=== PATIENT | female | born 1960 | race Caucasian/White ===

== ENCOUNTER 2016-12-16 08:25 | Outpatient (CLI) | payer OTHER ==
--- NOTE | 2016-12-16 16:16 | PET ---
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 Restaging. COMPARISON: 07/05/16. TECHNIQUE: IV injection F-18 Fluorodeoxyglucose (FDG) dose: 12.5 mCi PET and attenuation-correction CT performed from skull base to proximal thighs. FINDINGS: SUV (standard uptake value) numbers given are maximum SUV's: The previously demonstrated focus of hypermetabolic activity in the right anterior mandible, consist ent with odontogenic disease, has resolved. Diffusely enlarged thyroid gland is nonhypermetabolic, similar to previous study. Again noted is the right-sided implantable vascular access port. No abnormal foci of hypermetabolic activity in the ne ck, chest, abdomen, or pelvis, with the exception of the perianal region, similar to the previous st udy (current SUV 4.8; prior SUV 8.4). Previously demonstrated hypermetabolic activity in the sigmoid colon is no longer visualized. IMPRESSION: 1. Nonspecific focus of hypermetabolic activity in the region of the anus, as was the case previous ly. Nonspecific. Recommend clinical correlation. 2. Otherwise negative study. SAMIRA Orozco POS: BIMAL
== END 2016-12-16 08:26 | disposition home or self-care (01) ==
LOC: PET 08:25
PROVIDERS: ATTEND Internal Medicine Medical Oncology
DX: C83.33 Diffuse large B-cell lymphoma, intra-abdominal lymph nodes (principal)
CPT/HCPCS: 78815; A9552

== ENCOUNTER 2017-06-17 09:46 | Outpatient (CLI) | payer OTHER ==
--- NOTE | 2017-06-17 11:34 | MMO ---
BILATERAL SCREENING MAMMOGRAM: Date: 06/17/17 HISTORY: 57-year-old female. Routine screening mammography. COMPARISON: 11/11/16, 04/08/16, 03/31/16. TECHNIQUE: CC and MLO views of both breasts are submitted for interpretation. This patient's mammogram was reviewed with the assistance of computer-aided detection. FINDINGS: The breasts are predominantly fatty replaced. Bilaterally, no suspicious dominant mass, architectural distortion, or suspicious calcification. In the right breast, there are stable intramammary lymph no nicole. There is increased density in the right breast, compatible with scar marker. Interval removal of a MediPort. No suspicious masses or suspicious calcification. IMPRESSION: BIRADS 2: Benign Finding(s) RECOMMENDATION: Annual mammogram. POS: JEY
== END 2017-06-17 09:47 | disposition home or self-care (01) ==
LOC: SCSMAMMO 09:46
PROVIDERS: ATTEND Internal Medicine Medical Oncology
DX: Z12.31 Encounter for screening mammogram for malignant neoplasm of breast (principal); C83.33 Diffuse large B-cell lymphoma, intra-abdominal lymph nodes
CPT/HCPCS: 77067

== ENCOUNTER 2018-06-28 11:37 | Outpatient (CLI) | payer OTHER ==
--- NOTE | 2018-06-28 13:00 | MMO ---
Bilateral MAMMO Bilat Screen DDI. CLINICAL HISTORY: Patient is 58 years old and is seen for screening. The patient has a history of hodgkin's disease. VIEWS: The views performed were: bilateral craniocaudal and bilateral mediolateral oblique. FILMS COMPARED: The present examination has been compared to prior imaging studies performed at [facility] on 03/31/2016, 04/08/2016, 11/11/2016 and 06/17/2017. This study has been interpreted with the assistance of computer-aided detection. MAMMOGRAM FINDINGS: There are scattered fibroglandular densities. There are stable benign appearing calcifications seen in both breasts. There are no suspicious masses, suspicious calcifications, or new areas of architectural distortion. IMPRESSION: THERE IS NO MAMMOGRAPHIC EVIDENCE OF MALIGNANCY. A ROUTINE FOLLOW-UP MAMMOGRAM IN 1 YEAR IS RECOMMENDED. ACR BI-RADS Category 2 - Benign finding MAMMOGRAPHY NOTE: 1. A negative mammogram report should not delay a biopsy if a dominant of clinically suspicious mass is present. 2. Approximately 10% to 15% of breast cancers are not detected by mammography. 3. Adenosis and dense breasts may obscure an underlying neoplasm.
== END 2018-06-28 11:38 | disposition home or self-care (01) ==
LOC: BICMAMMO 11:37
PROVIDERS: ATTEND Family Medicine
DX: Z12.31 Encounter for screening mammogram for malignant neoplasm of breast (principal); Z85.71 Personal history of Hodgkin lymphoma
CPT/HCPCS: 77067

== ENCOUNTER 2018-08-19 01:49 | Outpatient (CLI) | payer OTHER ==
--- NOTE | 2018-08-19 15:12 | RAD ---
XR Chest Pa Lat STANDARD History: Preop Comparison: None. Findings: Lungs are clear. No pneumothorax or effusion. Cardiac silhouette and mediastinal contours a re within normal limits. Mild spondylosis midthoracic spine. Impression: No acute intrathoracic abnormality.
[2018-08-19 16:06] LABS: #Eosinphils 0.2 thou/uL (0.0-0.7); #Lymphocytes 2.3 thou/uL (1.20-3.40); #Monocytes 0.6 thou/uL (0.11-0.59); #Neutrophils 4.9 thou/uL (1.40-6.50); %Basophils 0.5 % (0.0-1.0); %Eosinophils 2.1 % (0.0-10.0); %Lymphocytes 28.8 % (21.0-51.0); %Monocytes 7.8 % (0.0-10.0); %Neutrophils 60.8 % (42.0-75.0); Mean Corpuscular HGB CONC 32.3 g/dL (32.0-36.0); Mean Corpuscular Hemoglobin 28.8 pg (27.0-31.0); Mean Corpuscular Volume 89.4 fL (78.0-98.0); Mean Platelet Volume 8.2 fL (7.4-10.4); Platelet Count 238 thou/uL (130-400); Red Blood Cell (RBC) Count 4.84 mill/uL (4.20-5.40); White Blood Cell (WBC) Count 8.1 thou/uL (4.8-10.8)
[2018-08-19 16:13] LABS: INR-International Normal Ratio 1.1; PTT 28.2 SEC (22.9-36.1); Prothrombin Time 13.9 SEC (12.0-14.7)
[2018-08-19 16:18] LABS: Bilirubin Negative (Negative); Blood, Urine Trace (Negative); Clarity CLEAR (Clear); Glucose, Urine (Dipstick) >=1000 mg/dL (Negative); Leukocyte Negative (Negative); Nitrite Negative (Negative); Protein, Urine (Dipstick) Negative (Neg-Trace); Specific Gravity, Urine 1.037 (1.002-1.036)
[2018-08-19 16:21] LABS: Bacteria/HPF Rare-Few HPF (None Seen); Hyaline Casts/LPF 0-3 HYALINE CAST LPF (0-3 Hyaline); RBC/HPF 0-3 HPF (0-3); Squamous Epithelial 0-3 HPF (0-3)
[2018-08-19 16:30] LABS: Anion Gap 12 mmol/L (10-20); BUN (Urea Nitrogen) 11 mg/dL (9.8-20.1); Calc. Creatinine Clearance 0 mL/min (70-130); Calcium 9.8 mg/dL (7.8-10.44); Carbon Dioxide 28 mmol/L (22-29); Chloride 104 mmol/L (98-107); Estimated GFR-MDRD 61; Glucose 335 mg/dL (70-105); Potassium 3.9 mmol/L (3.5-5.1); Sodium 140 mmol/L (136-145)
--- NOTE | 2018-08-20 21:25 | EKG ---
Test Reason : Blood Pressure : / mmHG Vent. Rate : 113 BPM Atrial Rate : 113 BPM P-R Int : 146 ms QRS Dur : 074 ms QT Int : 350 ms P-R-T Axes : 078 067 078 degrees QTc Int : 480 ms Sinus tachycardia Otherwise normal ECG When compared with ECG of 11-DEC-2014 10:49, No significant change was found Confirmed by Sol KIRKLAND ([id number]) on 08/20/2018 9:25:17 PM Referred By: KRISTAN Confirmed By:Sol KIRKLAND
== END 2018-08-19 01:50 | disposition home or self-care (01) ==
LOC: LABBT 01:49
PROVIDERS: ATTEND Orthopaedic Surgery
DX: Z01.818 Encounter for other preprocedural examination (principal); M17.11 Unilateral primary osteoarthritis, right knee
CPT/HCPCS: 71046; 80048; 81001; 85025; 85610; 85730; 87081; 93005; 93010

== ENCOUNTER 2018-08-19 14:00 | Inpatient (IN) | payer OTHER ==
[2018-08-19 14:20] VITALS: BMI 29.2
[2018-08-31] MEDS ORDERED: Sodium Chloride 0.9% 100 ML ONE (05:53)
[2018-08-31] MEDS ORDERED: Tranexamic Acid 1,000 MG/10 ML VIAL ONE ×2 (05:53→09:12)
[2018-08-31] MEDS ORDERED: Midazolam HCl 2 mg/2 ml Vial ONE (06:06)
[2018-08-31] MEDS ORDERED: Fentanyl 100 MCG/2 ML VIAL ONE ×3 (06:07→09:18)
[2018-08-31] MEDS ORDERED: Zolpidem Tartrate 5 MG TAB PO PRN (06:34)
[2018-08-31] MEDS ORDERED: Bupivacaine/Epinephrine 0.25% 30 ML VIAL ONE (06:34)
[2018-08-31] MEDS ORDERED: traMADol HCl 50 MG TAB PO PRN ×2 (06:34)
[2018-08-31] MEDS ORDERED: Ropivacaine HCl/PF 250 ML in Premix Bag 1 BAG NERVE BLCK SCH (06:34)
[2018-08-31] MEDS ORDERED: Promethazine HCl 25 MG/ML VIAL IM PRN (06:34)
[2018-08-31] MEDS ORDERED: HYDROcodone/Acetaminophen 10/325 mg Tablet PO PRN ×2 (06:34)
[2018-08-31] MEDS ORDERED: Ondansetron PF 4 MG/2 ML Vial IVP PRN (06:34)
[2018-08-31] MEDS ORDERED: Fentanyl 100 MCG/2 ML VIAL IV PRN (06:34)
[2018-08-31] MEDS ORDERED: Vancomycin HCl 1 GM in Premix Bag 1 BAG IVPB SCH ×2 (08:42→18:00)
[2018-08-31] MEDS ORDERED: Fentanyl 100 MCG/2 ML VIAL SLOW IVP PRN (08:42)
[2018-08-31] MEDS ORDERED: Acetaminophen 325 MG TAB PO PRN (08:42)
[2018-08-31] MEDS ORDERED: diphenhydrAMINE 25 MG CAP PO PRN (08:42)
--- NOTE | 2018-08-31 09:35 | RAD ---
Exam: XR Knee Rt 2 View HISTORY: Postoperative right total knee. COMPARISON: 01/07/2018 FINDINGS: There have been interval postsurgical changes related to placement of right total knee prosthesis. No hardware complication is seen. No acute fracture, dislocation, or other acute osseous abnormality is identified. Subcutaneous emphysema and edema are seen about the knee related to recent postsurgical changes. IMPRESSION: Postsurgical changes related to recent placement right total knee prosthesis.
[2018-08-31] MEDS ORDERED: Ipratropium Bromide 2.5 ml Neb NEB PRN (10:13)
[2018-08-31] MEDS ORDERED: Calcium Carbonate 500 MG ChewTAB PO PRN (10:14)
[2018-08-31] MEDS ORDERED: Diabetic Tussin 200 MG/10 ML UDCUP PO PRN (10:14)
[2018-08-31] MEDS ORDERED: hydrALAZINE 20 MG/ML VIAL SLOW IVP PRN (10:14)
[2018-08-31] MEDS ORDERED: Dextrose 50% Abboject 50 ML SYRINGE SLOW IVP PRN (10:14)
[2018-08-31] MEDS ORDERED: cloNIDine 0.1 MG TAB PO PRN (10:14)
[2018-08-31] MEDS ORDERED: Benzonatate 100 MG CAP PO PRN (10:14)
[2018-08-31] MEDS ORDERED: Nitroglycerin 0.4 MG TAB (25 Tab Bottle) SL PRN (10:14)
[2018-08-31] MEDS ORDERED: Dextrose 5% in Water 1,000 ML IV PRN (10:14)
[2018-08-31] MEDS ORDERED: HumaLOG 300 UNITS/3 ML VIAL SC PRN ×2 (10:14)
--- NOTE | 2018-08-31 10:25 | PDOC.PN ---
- Subjective Encounter Start Date: 08/31/18 Encounter Start Time: 10:23 Subjective: s/p R TKR.IM team consulted for medical Managment of DM,HTN etc -: Pt seen and examined and feels well.no new complaints for now -: PCP is Dr. Mikael Snow - Objective MAR Reviewed: Yes Vital Signs & Weight: Weight Weight 160 lb Additional Labs: Accuchecks 08/31/18 07:01 POC Glucose 99 Laboratory Tests 08/19/18 08/19/18 14:50 14:50 WBC 8.1 Hgb 14.0 Plt Count 238 Sodium 140 Potassium 3.9 Chloride 104 Carbon Dioxide 28 BUN 11 Creatinine 0.94 Phys Exam - Physical Examination Constitutional: NAD HEENT: PERRLA, moist MMs, sclera anicteric, oral pharynx no lesions Neck: no nodes, no JVD, supple, full ROM Respiratory: no wheezing, no rales, no rhonchi, clear to auscultation bilateral Cardiovascular: RRR, no significant murmur Gastrointestinal: soft, non-tender, no distention, positive bowel sounds Musculoskeletal: no edema, pulses present Neurological: non-focal, normal sensation, moves all 4 limbs Psychiatric: normal affect, A&O x 3 Skin: no rash Dx/Plan (1) DM type 2 (diabetes mellitus, type 2) Status: Chronic Comment: Restart Invokana,Victoza and glipizide. Avoid metfromin to avoid metabolic acidosis and/or MORA Add ISS w accuchecks achs (2) Lymphoma Status: Chronic Qualifiers: B-cell lymphoma type: diffuse large B-cell Comment: stable. follows Outpt w Dr. tran (3) S/P total knee arthroplasty Code(s): Z96.659 - PRESENCE OF UNSPECIFIED ARTIFICIAL KNEE JOINT Status: Acute Qualifiers: Laterality: right Qualified Code(s): Z96.651 - Presence of right artificial knee joint (4) HTN (hypertension) Code(s): I10 - ESSENTIAL (PRIMARY) HYPERTENSION Status: Chronic Comment: restart Lisinopril/HCTZ and monitor. Add prn antihypertensives - Plan PT/OT, out of bed/ambulate, DVT proph w/SCDs ASA BID for DVT prophyalxis -: AM labs -: HD stable -: IM team will follow * . Review of Systems - Review of Systems Constitutional: negative: fever, chills, sweats, weakness, malaise, other ENT: negative: Ear Pain, Ear Discharge, Nose Pain, Nose Discharge, Nose Congestion, Mouth Pain, Mouth Swelling, Throat Pain, Throat Swelling, Other Respiratory: negative: Cough, Dry, Shortness of Breath, Hemoptysis, SOB with Excertion, Pleuritic Pain, Sputum, Wheezing Cardiovascular: negative: chest pain, palpitations, orthopnea, paroxysmal nocturnal dyspnea, edema, light headedness, other Gastrointestinal: negative: Nausea, Vomiting, Abdominal Pain, Diarrhea, Constipation, Melena, Hematochezia, Other Genitourinary: negative: Dysuria, Frequency, Incontinence, Hematuria, Retention , Other Musculoskeletal: negative: Neck Pain, Shoulder Pain, Arm Pain, Back Pain, Hand Pain, Leg Pain, Foot Pain, Other Neurological: negative: Weakness, Numbness, Incoordination, Change in Speech, Confusion, Seizures, Other - Medications/Allergies Allergies/Adverse Reactions: Allergies Allergy/AdvReac Type Severity Reaction Status Date / Time No Known Allergies Allergy Verified 08/19/18 14:20 Medications: Current Medications Acetaminophen (Tylenol) 650 mg PO Q4H PRN PRN Reason: Headache/Fever or Pain Hydrocodone Bitart/Acetaminophen ([place] 10/325) 1 tab PO Q4H PRN PRN Reason: Pain (1-3) Hydrocodone Bitart/Acetaminophen ([place] 10/325) 2 tab PO Q4H PRN PRN Reason: PAIN (4-6) Aspirin (Ecotrin) 81 mg PO BID JAYA Benzonatate (Tessalon) 100 mg PO Q6H PRN PRN Reason: Cough Calcium Carbonate (Tums) 1,000 mg PO Q4H PRN PRN Reason: Heartburn or Indigestion Citalopram Hydrobromide (Celexa) 20 mg PO DAILY JAYA Clonidine (Catapres) 0.1 mg PO Q4H PRN PRN Reason: SBP > 160____ Dextrose/Water (Dextrose 50%) 25 gm SLOW IVP PRN PRN PRN Reason: Hypoglycemia Diphenhydramine HCl (Benadryl) 25 mg PO Q6H PRN PRN Reason: Itching Fentanyl (Sublimaze) 50 mcg IV Q1H PRN PRN Reason: BREAKTHROUGH PAIN Fentanyl (Sublimaze) 100 mcg SLOW IVP Q1H PRN PRN Reason: Severe Pain (7-10) Ferrous Gluconate (Fergon) 324 mg PO BID [facility] Glipizide (Glucotrol Xl) 10 mg PO QAM-WM [facility] Glucagon (Glucagon) 1 mg IM PRN PRN PRN Reason: Hypoglycemia Guaifenesin (Robitussin Sf) 200 mg PO Q4H PRN PRN Reason: Cough Lisinopril/HCTZ (Prinizide 10-12.5) 1 tab PO DAILY [facility] Hydralazine HCl (Apresoline) 10 mg SLOW IVP Q4H PRN PRN Reason: SBP > 180 and HR < 70 Ropivacaine 250 ml/ Device 250 mls @ 0 mls/hr NERVE BLCK INF [facility] Cefazolin Sodium/Dextrose 2 gm (/ Device) 50 mls @ 100 mls/hr IVPB 0000,1600 [facility] Stop: 09/01/18 00:29 Sodium Chloride (Normal Saline 0.9%) 1,000 mls @ 100 mls/hr IV .Q10H [facility] Dextrose/Water (D5w) 1,000 mls @ 0 mls/hr IV .Q0M PRN PRN Reason: Hypoglycemia Insulin Human Lispro (Humalog) 0 units SC .MODERATE SLIDING SC PRN PRN Reason: Moderate Correctional Scale Insulin Human Lispro (Humalog) 0 units SC .BEDTIME SLIDING SC PRN PRN Reason: Bedtime Correctional Scale Ipratropium [place] (Atrovent) ml NEB QID PRN PRN Reason: seasonal Iron/Minerals/Multivitamins (Theragran M) 1 tab PO DAILY [facility] Ketorolac Tromethamine (Toradol) 30 mg IVP Q6HR [facility] Stop: 09/02/18 06:01 Nitroglycerin (Nitrostat) 0.4 mg SL Q5MIN PRN PRN Reason: Chest Pain Non-Formulary Medication (Canagliflozin [Invokana]) 300 mg PO DAILY [facility] Non-Formulary Medication (Liraglutide [Victoza 2-Niko]) 0.5 units SQ DAILY [facility] Ondansetron HCl (Zofran) 4 mg IVP Q6H PRN PRN Reason: Nausea/Vomiting Promethazine HCl (Phenergan) 12.5 mg IM Q4H PRN PRN Reason: Nausea Senna/Docusate Sodium (Senokot S) 2 tab PO BID JAYA Simvastatin (Zocor) 40 mg PO QPM JAYA Sodium Chloride (Flush - Normal Saline) 10 ml IVF PRN PRN PRN Reason: Saline Flush Tramadol HCl (Ultram) 50 mg PO Q6H PRN PRN Reason: Mild Pain (1-3) Tramadol HCl (Ultram) 100 mg PO Q6H PRN PRN Reason: Moderate Pain 4-6 Zolpidem Tartrate (Ambien) 5 mg PO HSPRN PRN PRN Reason: Insomnia
--- NOTE | 2018-08-31 10:56 | OP ---
DATE OF PROCEDURE: 08/31/2018 PREOPERATIVE DIAGNOSIS: Right knee osteoarthritis. POSTOPERATIVE DIAGNOSIS: Right knee osteoarthritis. PROCEDURE PERFORMED: Right total knee arthroplasty. MANAGER ACUTE: Valente Castro PA-C ANESTHESIA: The patient received LMA with an adductor canal catheter and single-shot sciatic. ESTIMATED BLOOD LOSS: 75 mL. TOURNIQUET TIME: 59 minutes at 250 mmHg. ANTIBIOTICS: Ancef 2 g, vancomycin 1 g, and TXA 1 g. The patient received Barnard triathlon 3 femur, 3 tibia, 9 CS poly, X3 and A29 patella. COMPLICATIONS: None. HISTORY OF PRESENT ILLNESS: Ms. Weller is a 58-year-old female with a history of right knee pain with failed conservative measures, injections, medications, and therapy. The patient desired to undergo right total knee arthroplasty. I discussed with her the risks and benefits of surgery to include pain, scar, bleeding, infection, damage to vital structures, decreased range of motion, nonunion and malunion of fracture above and below the stem, infection, and loss of life or limb. The patient understood the risks and benefits and elected to proceed. DESCRIPTION OF PROCEDURE: Time-out was performed designating the patient's right lower extremity as the operative site based on site, consents, and marking. After time-out, the patient's right lower extremity was prepped and draped in sterile fashion. Tourniquet was brought up and left up for a total of 59 minutes. Anterior midline approach, medial patellar arthrotomy, excised the fat pad. The medial soft tissue release exposed distal femur mapped out the femur cut at 8, 6, 0 degrees of varus and valgus, 4 degrees of slope. We then moved, placed our 3-degree external rotation block in position. We pinned it, sized to a size 3, removed and placed our 3 cutting block; anterior, posterior, and chamfer cuts through the osteophytes and then exposed the tibia. We did an ACL release at lateral meniscus to help with our exposure, we did a posterior PCL release pickle fork in position, cut the tibia with 0 degrees of varus and valgus, 4 degrees of posterior slope, and a 2 and 6 respectively. We removed our bone wedge. We cleaned up the patient's knee. We placed the lamina spreaders medial and lateral, removed the meniscus, posterior osteophytes, decompressed the PCL, and PCL release, placed a size 3 tibial tray, anterior 1/3rd of the tibial tubercle in-line with second ray. Right down the length, we liked the overall alignment and position. We pinned into position, placed a 9 poly, 3 femur. The patient had good tracking, full extension, had overall good alignment. We then everted the patella, cut it from 24 down to 12, placed A29 asymmetric patella, it was drilled in place. We then tried and drilled our lugs, cut our keel, cemented our tibia, cemented our poly, removed excess cement, and placed our poly over tibia. We cemented our femur and removed excess cement. We cemented our patella, removed excess cement, and washed. We flexed the knee and made sure that all cement was gone. We liked overall position, washed and closed with #2 STRATAFIX, 0 STRATAFIX, 3-0 STRATAFIX, and glue. The patient will be weightbearing as tolerated. I will see the patient back in clinic in 3 weeks. She will be in the hospital for two days. Discharged to home. Job ID: [id number]
[2018-08-31] MEDS ORDERED: Prevnar 13-Val Conj/PF 0.5 ML SYRINGE IM ONE (11:15)
[2018-08-31] MEDS ORDERED: Ropivacaine 0.2% HCl/PF (40 MG/20 ML VIAL) ONE (11:24)
[2018-08-31] MEDS ORDERED: Ropivacaine 0.5% HCl/PF (150 MG/30 ML VIAL) ONE (11:24)
[2018-08-31] MEDS ORDERED: Metoprolol Tartrate 5 MG/5 ML VIAL ONE (11:53)
[2018-08-31] MEDS ORDERED: PROPOFOL 200 MG/20 ML VIAL ONE (11:53)
[2018-08-31] MEDS: Sodium Chloride 0.9% 1,000 ML IV SCH ×2 (12:06→19:42)
[2018-08-31] MEDS: Aspirin 81 mg Enteric Coated Tablet PO SCH ×2 (12:23→21:05)
[2018-08-31] MEDS: Ketorolac Tromethamine 30 MG/ML VIAL IVP SCH ×2 (12:23→18:12)
[2018-08-31] MEDS: CEFAZOLIN 2 GM in Premix Bag 1 BAG IVPB SCH (16:19)
[2018-08-31] MEDS: Atorvastatin Calcium 20 MG TAB PO SCH (21:05)
[2018-09-01] MEDS: CEFAZOLIN 2 GM in Premix Bag 1 BAG IVPB SCH (00:25)
[2018-09-01] MEDS: Ketorolac Tromethamine 30 MG/ML VIAL IVP SCH ×4 (00:25→17:35)
[2018-09-01] MEDS: Sodium Chloride 0.9% 1,000 ML IV SCH ×3 (05:48→23:16)
[2018-09-01 06:22] LABS: Hemoglobin 11.8 g/dL (12.0-16.0); Mean Corpuscular HGB CONC 32.6 g/dL (32.0-36.0); Mean Corpuscular Volume 88.8 fL (78.0-98.0); Mean Platelet Volume 8.1 fL (7.4-10.4); Platelet Count 210 thou/uL (130-400); RBC Distribution Width 12.1 % (11.5-14.5); Red Blood Cell (RBC) Count 4.08 mill/uL (4.20-5.40); White Blood Cell (WBC) Count 13.1 thou/uL (4.8-10.8)
[2018-09-01 06:43] LABS: Anion Gap 10 mmol/L (10-20); BUN (Urea Nitrogen) 18 mg/dL (9.8-20.1); Calc. Creatinine Clearance 125 mL/min (70-130); Carbon Dioxide 25 mmol/L (22-29); Chloride 104 mmol/L (98-107); Estimated GFR-MDRD Greater than 90; Glucose 124 mg/dL (70-105); Sodium 135 mmol/L (136-145)
[2018-09-01] MEDS ORDERED: Lisinopril/Hydrochlorothiazide 10 mg/12.5 mg Tablet PO SCH (09:00)
[2018-09-01] MEDS ORDERED: Non-Formulary Item 1 EACH (Canagliflozin [Invokana] 300 MG) PO SCH (09:00)
[2018-09-01] MEDS ORDERED: LIRAGLUTIDE SQ SCH (09:00)
[2018-09-01] MEDS: Multivitamin W/ Minerals 1 TAB PO SCH (09:06)
[2018-09-01] MEDS: Senokot S 8.6-50 MG TAB PO SCH ×2 (09:07→20:04)
[2018-09-01] MEDS: Ferrous Gluconate 324 MG TAB PO SCH ×2 (09:07→20:04)
[2018-09-01] MEDS: Citalopram 20 MG TAB PO SCH (09:07)
[2018-09-01] MEDS: Aspirin 81 mg Enteric Coated Tablet PO SCH ×2 (09:12→20:03)
[2018-09-01] MEDS: Atorvastatin Calcium 20 MG TAB PO SCH (20:04)
--- NOTE | 2018-09-01 22:42 | PDOC.PN ---
- Subjective Encounter Start Date: 09/01/18 Encounter Start Time: 17:00 Subjective: pt up in chair no complains - Objective Vital Signs & Weight: Vital Signs (12 hours) Temp Pulse Resp BP Pulse Ox 09/01/18 20:38 96 09/01/18 19:41 99.2 F 124 H 18 124/71 96 09/01/18 15:43 98.7 F 106 H 16 111/83 94 L Weight Admit Weight 160 lb Weight 160 lb I&O: 08/31/18 09/01/18 09/02/18 06:59 06:59 06:59 Intake Total 1100 1000 Output Total 750 800 Balance 350 200 Result Diagrams: 09/01/18 05:35 09/01/18 05:35 Additional Labs: Accuchecks 09/01/18 09/01/18 09/01/18 21:02 15:44 14:42 POC Glucose 156 H 161 H 177 H 09/01/18 05:53 POC Glucose 126 H Phys Exam - Physical Examination Neck: no nodes, no JVD, supple, full ROM Respiratory: no wheezing, no rales, no rhonchi, wheezing present, clear to auscultation bilateral Cardiovascular: RRR, no significant murmur, no rub, gallop, irregular Gastrointestinal: soft, non-tender, no distention, positive bowel sounds Dx/Plan (1) DM type 2 (diabetes mellitus, type 2) Status: Chronic Comment: Restart Invokana,Victoza and glipizide. Avoid metfromin to avoid metabolic acidosis and/or MORA Add ISS w accuchecks achs (2) Sinus tachycardia Code(s): R00.0 - TACHYCARDIA, UNSPECIFIED Status: Acute (3) S/P total knee arthroplasty Code(s): Z96.659 - PRESENCE OF UNSPECIFIED ARTIFICIAL KNEE JOINT Status: Acute Qualifiers: Laterality: right Qualified Code(s): Z96.651 - Presence of right artificial knee joint (4) HTN (hypertension) Code(s): I10 - ESSENTIAL (PRIMARY) HYPERTENSION Status: Chronic Comment: restart Lisinopril/HCTZ and monitor. Add prn antihypertensives (5) Lymphoma Status: Chronic Qualifiers: B-cell lymphoma type: diffuse large B-cell Comment: stable. follows Outpt w Dr. tran - Plan pre op ekg also indicated sinus tachycardia, hh stable -: will continue to monitor. Need an outpatient eval for -: sinus tachycardia. pt is asymtomatic -: blood sugars stable. * . Review of Systems - Review of Systems Respiratory: negative: Cough, Dry, Shortness of Breath, Hemoptysis, SOB with Excertion, Pleuritic Pain, Sputum, Wheezing Cardiovascular: negative: chest pain, palpitations, orthopnea, paroxysmal nocturnal dyspnea, edema, light headedness, other Gastrointestinal: negative: Nausea, Vomiting, Abdominal Pain, Diarrhea, Constipation, Melena, Hematochezia, Other - Medications/Allergies Allergies/Adverse Reactions: Allergies Allergy/AdvReac Type Severity Reaction Status Date / Time No Known Allergies Allergy Verified 08/19/18 14:20 Medications: Current Medications Acetaminophen (Tylenol) 650 mg PO Q4H PRN PRN Reason: Headache/Fever or Pain Hydrocodone Bitart/Acetaminophen ([place] 10/325) 1 tab PO Q4H PRN PRN Reason: Pain (1-3) Last Admin: 09/01/18 09:12 Dose: 1 tab Hydrocodone Bitart/Acetaminophen ([place] 10/325) 2 tab PO Q4H PRN PRN Reason: PAIN (4-6) Aspirin (Ecotrin) 81 mg PO BID [facility] Last Admin: 09/01/18 20:03 Dose: 81 mg Atorvastatin Calcium (Lipitor) 20 mg PO HS [facility] Last Admin: 09/01/18 20:04 Dose: 20 mg Benzonatate (Tessalon) 100 mg PO Q6H PRN PRN Reason: Cough Calcium Carbonate (Tums) 1,000 mg PO Q4H PRN PRN Reason: Heartburn or Indigestion Citalopram Hydrobromide (Celexa) 20 mg PO DAILY [facility] Last Admin: 09/01/18 09:07 Dose: 20 mg Clonidine (Catapres) 0.1 mg PO Q4H PRN PRN Reason: SBP > 160____ Dextrose/Water (Dextrose 50%) 25 gm SLOW IVP PRN PRN PRN Reason: Hypoglycemia Diphenhydramine HCl (Benadryl) 25 mg PO Q6H PRN PRN Reason: Itching Fentanyl (Sublimaze) 50 mcg IV Q1H PRN PRN Reason: BREAKTHROUGH PAIN Fentanyl (Sublimaze) 100 mcg SLOW IVP Q1H PRN PRN Reason: Severe Pain (7-10) Ferrous Gluconate (Fergon) 324 mg PO BID [facility] Last Admin: 09/01/18 20:04 Dose: 324 mg Glipizide (Glucotrol Xl) 10 mg PO QAM-WM [facility] Last Admin: 09/01/18 09:06 Dose: 10 mg Glucagon (Glucagon) 1 mg IM PRN PRN PRN Reason: Hypoglycemia Guaifenesin (Robitussin Sf) 200 mg PO Q4H PRN PRN Reason: Cough Hydralazine HCl (Apresoline) 10 mg SLOW IVP Q4H PRN PRN Reason: SBP > 180 and HR < 70 Ropivacaine 250 ml/ Device 250 mls @ 0 mls/hr NERVE BLCK INF [facility] Sodium Chloride (Normal Saline 0.9%) 1,000 mls @ 100 mls/hr IV .Q10H [facility] Last Admin: 09/01/18 12:37 Dose: Not Given Dextrose/Water (D5w) 1,000 mls @ 0 mls/hr IV .Q0M PRN PRN Reason: Hypoglycemia Insulin Human Lispro (Humalog) 0 units SC .MODERATE SLIDING SC PRN PRN Reason: Moderate Correctional Scale Last Admin: 09/01/18 17:33 Dose: 2 unit Insulin Human Lispro (Humalog) 0 units SC .BEDTIME SLIDING SC PRN PRN Reason: Bedtime Correctional Scale Ipratropium [place] (Atrovent) 2.5 ml NEB QID PRN PRN Reason: seasonal Iron/Minerals/Multivitamins (Theragran M) 1 tab PO DAILY [facility] Last Admin: 09/01/18 09:06 Dose: 1 tab Ketorolac Tromethamine (Toradol) 30 mg IVP Q6HR [facility] Stop: 09/02/18 06:01 Last Admin: 09/01/18 17:35 Dose: 30 mg Nitroglycerin (Nitrostat) 0.4 mg SL Q5MIN PRN PRN Reason: Chest Pain Non-Formulary Medication (Canagliflozin [Invokana]) 300 mg PO DAILY [facility] Non-Formulary Medication (Liraglutide [Victoza 2-Niko]) 0.5 units SQ DAILY [facility] Ondansetron HCl (Zofran) 4 mg IVP Q6H PRN PRN Reason: Nausea/Vomiting Promethazine HCl (Phenergan) 12.5 mg IM Q4H PRN PRN Reason: Nausea Senna/Docusate Sodium (Senokot S) 2 tab PO BID [facility] Last Admin: 09/01/18 20:04 Dose: 2 tab Sodium Chloride (Flush - Normal Saline) 10 ml IVF PRN PRN PRN Reason: Saline Flush Tramadol HCl (Ultram) 50 mg PO Q6H PRN PRN Reason: Mild Pain (1-3) Tramadol HCl (Ultram) 100 mg PO Q6H PRN PRN Reason: Moderate Pain 4-6 Zolpidem Tartrate (Ambien) 5 mg PO HSPRN PRN PRN Reason: Insomnia
[2018-09-02] MEDS: Ketorolac Tromethamine 30 MG/ML VIAL IVP SCH ×2 (01:34→05:06)
[2018-09-02 05:05] LABS: Hemoglobin 11.5 g/dL (12.0-16.0); Mean Corpuscular HGB CONC 33.1 g/dL (32.0-36.0); Mean Corpuscular Hemoglobin 29.2 pg (27.0-31.0); Mean Corpuscular Volume 88.2 fL (78.0-98.0); Platelet Count 203 thou/uL (130-400); RBC Distribution Width 11.9 % (11.5-14.5); Red Blood Cell (RBC) Count 3.94 mill/uL (4.20-5.40); White Blood Cell (WBC) Count 13.7 thou/uL (4.8-10.8)
[2018-09-02] MEDS: Ferrous Gluconate 324 MG TAB PO SCH (08:53)
[2018-09-02] MEDS: Multivitamin W/ Minerals 1 TAB PO SCH (08:53)
[2018-09-02] MEDS: Aspirin 81 mg Enteric Coated Tablet PO SCH (08:53)
[2018-09-02] MEDS: Citalopram 20 MG TAB PO SCH (08:53)
[2018-09-02] MEDS: Senokot S 8.6-50 MG TAB PO SCH (08:53)
[2018-09-02] MEDS: Sodium Chloride 0.9% 1,000 ML IV SCH (09:28)
[2018-09-02 11:51] VITALS: BP 143/85; TEMP 98.6
--- NOTE | 2018-09-02 12:45 | PDOC.PN ---
- Subjective Encounter Start Date: 09/02/18 Encounter Start Time: 09:30 -: old records requested/rev Patient seen and examined. No new complaints. No overnight events - Objective Resuscitation Status - Order Detail: 09/02/18 08:17 Resuscitation Status Routine Resuscitation Status: FULL: Full Resuscitation MAR Reviewed: Yes Vital Signs & Weight: Vital Signs (12 hours) Temp Pulse Resp BP Pulse Ox 09/02/18 11:50 98.6 F 121 H 16 143/85 H 97 09/02/18 07:42 98.2 F 114 H 18 121/78 95 09/02/18 04:28 99.6 F 128 H 18 108/67 96 Weight Admit Weight 160 lb Weight 160 lb I&O: 09/01/18 09/02/18 09/03/18 06:59 06:59 06:59 Intake Total 1100 1000 Output Total 750 800 Balance 350 200 Result Diagrams: 09/02/18 04:26 09/01/18 05:35 Additional Labs: Accuchecks 09/02/18 09/01/18 09/01/18 06:29 21:02 15:44 POC Glucose 110 156 H 161 H 09/01/18 14:42 POC Glucose 177 H Phys Exam - Physical Examination Constitutional: NAD HEENT: PERRLA, moist MMs, sclera anicteric Neck: no JVD, supple Respiratory: no wheezing, no rales, no rhonchi Cardiovascular: RRR, no significant murmur, no rub Gastrointestinal: soft, non-tender, no distention, positive bowel sounds Musculoskeletal: no edema, pulses present Neurological: non-focal, normal sensation Lymphatic: no nodes Psychiatric: normal affect, A&O x 3 Skin: no rash, normal turgor Dx/Plan (1) Sinus tachycardia Code(s): R00.0 - TACHYCARDIA, UNSPECIFIED Status: Acute Comment: (2) Status post total right knee replacement Code(s): Z96.651 - PRESENCE OF RIGHT ARTIFICIAL KNEE JOINT Status: Acute (3) Anemia, normocytic normochromic Code(s): D64.9 - ANEMIA, UNSPECIFIED Status: Chronic (4) DM type 2 (diabetes mellitus, type 2) Status: Chronic Comment: (5) HTN (hypertension) Code(s): I10 - ESSENTIAL (PRIMARY) HYPERTENSION Status: Chronic Comment: (6) Lymphoma Status: Chronic Qualifiers: B-cell lymphoma type: diffuse large B-cell Comment: stable. follows Outpt w Dr. tran (7) Hypoglycemia Code(s): E16.2 - HYPOGLYCEMIA, UNSPECIFIED Status: Acute Comment: resolved - Plan cont current plan of care, PT/OT * medication reviewed as below * symptomatic treatment * stable medically * doing well with PT * pain controlled * plan for discharge later today * will sign off.. Review of Systems - Review of Systems ENT: negative: Ear Pain, Ear Discharge, Nose Pain, Nose Discharge, Nose Congestion, Mouth Pain, Mouth Swelling, Throat Pain, Throat Swelling, Other Respiratory: negative: Cough, Dry, Shortness of Breath, Hemoptysis, SOB with Excertion, Pleuritic Pain, Sputum, Wheezing Cardiovascular: negative: chest pain, palpitations, orthopnea, paroxysmal nocturnal dyspnea, edema, light headedness, other Gastrointestinal: negative: Nausea, Vomiting, Abdominal Pain, Diarrhea, Constipation, Melena, Hematochezia, Other Genitourinary: negative: Dysuria, Frequency, Incontinence, Hematuria, Retention , Other Musculoskeletal: negative: Neck Pain, Shoulder Pain, Arm Pain, Back Pain, Hand Pain, Leg Pain, Foot Pain, Other Skin: negative: Rash, Lesions, Chandler, Bruising, Other - Medications/Allergies Allergies/Adverse Reactions: Allergies Allergy/AdvReac Type Severity Reaction Status Date / Time No Known Allergies Allergy Verified 08/19/18 14:20 Medications: Current Medications Acetaminophen (Tylenol) 650 mg PO Q4H PRN PRN Reason: Headache/Fever or Pain Hydrocodone Bitart/Acetaminophen ([place] 10/325) 1 tab PO Q4H PRN PRN Reason: Pain (1-3) Last Admin: 09/01/18 09:12 Dose: 1 tab Hydrocodone Bitart/Acetaminophen ([place] 10/325) 2 tab PO Q4H PRN PRN Reason: PAIN (4-6) Aspirin (Ecotrin) 81 mg PO BID [facility] Last Admin: 09/02/18 08:53 Dose: 81 mg Atorvastatin Calcium (Lipitor) 20 mg PO HS [facility] Last Admin: 09/01/18 20:04 Dose: 20 mg Benzonatate (Tessalon) 100 mg PO Q6H PRN PRN Reason: Cough Calcium Carbonate (Tums) 1,000 mg PO Q4H PRN PRN Reason: Heartburn or Indigestion Citalopram Hydrobromide (Celexa) 20 mg PO DAILY [facility] Last Admin: 09/02/18 08:53 Dose: 20 mg Clonidine (Catapres) 0.1 mg PO Q4H PRN PRN Reason: SBP > 160____ Dextrose/Water (Dextrose 50%) 25 gm SLOW IVP PRN PRN PRN Reason: Hypoglycemia Diphenhydramine HCl (Benadryl) 25 mg PO Q6H PRN PRN Reason: Itching Fentanyl (Sublimaze) 50 mcg IV Q1H PRN PRN Reason: BREAKTHROUGH PAIN Fentanyl (Sublimaze) 100 mcg SLOW IVP Q1H PRN PRN Reason: Severe Pain (7-10) Ferrous Gluconate (Fergon) 324 mg PO BID [facility] Last Admin: 09/02/18 08:53 Dose: 324 mg Glipizide (Glucotrol Xl) 10 mg PO QAM-WM [facility] Last Admin: 09/02/18 08:53 Dose: 10 mg Glucagon (Glucagon) 1 mg IM PRN PRN PRN Reason: Hypoglycemia Guaifenesin (Robitussin Sf) 200 mg PO Q4H PRN PRN Reason: Cough Hydralazine HCl (Apresoline) 10 mg SLOW IVP Q4H PRN PRN Reason: SBP > 180 and HR < 70 Ropivacaine 250 ml/ Device 250 mls @ 0 mls/hr NERVE BLCK INF [facility] Sodium Chloride (Normal Saline 0.9%) 1,000 mls @ 100 mls/hr IV .Q10H [facility] Last Admin: 09/02/18 09:28 Dose: Not Given Dextrose/Water (D5w) 1,000 mls @ 0 mls/hr IV .Q0M PRN PRN Reason: Hypoglycemia Insulin Human Lispro (Humalog) 0 units SC .MODERATE SLIDING SC PRN PRN Reason: Moderate Correctional Scale Last Admin: 09/01/18 17:33 Dose: 2 unit Insulin Human Lispro (Humalog) 0 units SC .BEDTIME SLIDING SC PRN PRN Reason: Bedtime Correctional Scale Ipratropium [place] (Atrovent) 2.5 ml NEB QID PRN PRN Reason: seasonal Iron/Minerals/Multivitamins (Theragran M) 1 tab PO DAILY [facility] Last Admin: 09/02/18 08:53 Dose: 1 tab Nitroglycerin (Nitrostat) 0.4 mg SL Q5MIN PRN PRN Reason: Chest Pain Non-Formulary Medication (Canagliflozin [Invokana]) 300 mg PO DAILY [facility] Non-Formulary Medication (Liraglutide [Victoza 2-Niko]) 0.5 units SQ DAILY [facility] Ondansetron HCl (Zofran) 4 mg IVP Q6H PRN PRN Reason: Nausea/Vomiting Promethazine HCl (Phenergan) 12.5 mg IM Q4H PRN PRN Reason: Nausea Senna/Docusate Sodium (Senokot S) 2 tab PO BID [facility] Last Admin: 09/02/18 08:53 Dose: 2 tab Sodium Chloride (Flush - Normal Saline) 10 ml IVF PRN PRN PRN Reason: Saline Flush Tramadol HCl (Ultram) 50 mg PO Q6H PRN PRN Reason: Mild Pain (1-3) Tramadol HCl (Ultram) 100 mg PO Q6H PRN PRN Reason: Moderate Pain 4-6 Zolpidem Tartrate (Ambien) 5 mg PO HSPRN PRN PRN Reason: Insomnia
--- NOTE | 2018-09-02 14:22 | DIS ---
DATE OF ADMISSION: 08/31/2018 DATE OF DISCHARGE: 09/02/2018 PRIMARY CARE PHYSICIAN: Dr. Mikael Snow. DISCHARGE DISPOSITION: Home. PRIMARY DISCHARGE DIAGNOSES: 1. Right total knee replacement. 2. Normocytic normochromic anemia. 3. Diabetes type 2. 4. History of lymphoma. 5. Hypertension. PRIMARY PROCEDURE/OPERATION: Right total knee replacement by Dr. Pham. RADIOLOGICAL INVESTIGATION: Knee x-ray. SIGNIFICANT LABORATORY DATA: WBC 13.7, hemoglobin 11.5, platelet 203. Sodium 135, potassium 4.0, BUN 18, creatinine 0.56, calcium 9.0. DISCHARGE MEDICATIONS: 1. Tylenol 500 mg p.o. q.6 hourly p.r.n. as directed. 2. Invokana 300 mg p.o. daily. 3. Celexa 20 mg daily. 4. Flexeril 10 mg t.i.d. p.r.n. 5. Glipizide 10 mg daily. 6. Atrovent inhaler q.6 hourly. 7. Ipratropium bromide nebulization q.i.d. 8. Victoza 0.5 units subcu daily. 9. Prinzide 10/12.5 one tablet daily. 10. Mobic 7.5 mg p.o. daily. 11. Metformin 1000 mg b.i.d. 12. Tramadol 50 mg q.i.d. p.r.n. 13. Aspirin 81 mg p.o. b.i.d. 14. Zocor 40 mg p.o. at bedtime. CONTRAINDICATION: None. CODE STATUS: Full code. INPATIENT INDUSTRIAL WASTE TREATMENT TECHNICIAN: Dr. Pham was primary while in hospital. [facility] Team was consulted for medical comanagement. TEST RESULTS PENDING ON DISCHARGE: None. ALLERGIES: NO KNOWN DRUG ALLERGIES. DISCHARGE PLAN: Post hospital, the patient will follow up with Dr. Mikael Snow. The patient will follow up with Dr. Zenon Pham on September 13, 2018 at 1 p.m. HOSPITAL COURSE: A 58-year-old female, who was electively admitted by Dr. Pham for right total knee replacement which was done on August 31, 2018. After surgery, a [facility] Team was consulted for medical comanagement. The patient's medical problems remained stable. While in hospital, we noted that she was having dizziness and sinus tachycardia, but looking at her old record, she has chronic sinus tachycardia. The patient was asymptomatic. Her pain was though contributing factor for her tachycardia. She was saturating normal. She did not have any respiratory symptoms. She did not have any calf tenderness. She did overall well while in hospital for her [facility] protocol treatment. She was given aspirin for DVT prophylaxis. She had no block while in hospital. Her home medication was continued while in hospital as well as on discharge. Today, the patient is planned for discharge by Primary Team. The patient is seen and examined at bedside today. Please see my progress note from today for further detail. Job ID: [id number]
== END 2018-09-02 13:40 | disposition home or self-care (01) | DRG 470 ==
LOC: SJJU 08-31 05:30
PROVIDERS: ADMIT Orthopaedic Surgery; ATTEND Orthopaedic Surgery
PROC: 0SRC0J9 Replacement of Right Knee Joint with Synthetic Substitute, Cemented, Open Approach (ICD-10-PCS; principal; 2018-08-31)
DX: M17.11 Unilateral primary osteoarthritis, right knee (principal); C83.30 Diffuse large B-cell lymphoma, unspecified site; D64.9 Anemia, unspecified; F17.210 Nicotine dependence, cigarettes, uncomplicated; E11.649 Type 2 diabetes mellitus with hypoglycemia without coma; I10 Essential (primary) hypertension; F32.9 Major depressive disorder, single episode, unspecified; R00.0 Tachycardia, unspecified; Z98.51 Tubal ligation status; Z79.84 Long term (current) use of oral hypoglycemic drugs; Z79.899 Other long term (current) drug therapy; Z79.82 Long term (current) use of aspirin
CPT/HCPCS: 36415; 36416; 80048; 85027; 90471; 90670; C1713; C1776; G0009; J0690; J1885; J2250; J2704; J2795; J3010; J3370; J3490

== ENCOUNTER 2019-05-16 08:53 | Outpatient (CLI) | payer OTHER ==
--- NOTE | 2019-05-16 09:23 | CT ---
CT Abdomen Pelvis W Con History: Lymphoma of the: Comparison: PET/CT for reference December 2016. CT abdomen and pelvis August 2015 Findings: Few tree-in-bud opacities right lower lobe likely post infectious. No pericardial effusion. Liver, gallbladder, spleen are unremarkable. Lateral left limb adrenal gland myelolipoma. No intrahepatic or extrahepatic biliary dilatation. No evidence for disease recurrence of the pelvis. No retroperitoneal aortic adenopathy. No hydronephrosis. There is a calculus inferior pole left renal collecting system measuring 3 x 3 mm. No other calculus is appreciated. Small hypodensity superior right renal cortex similar to the comparison exam, indicative of a cyst. Moderate facet arthrosis lower lumbar spine. No suspicious osteolytic or osteoblastic lesions. Impression: 1. No evidence for disease recurrence or metastasis. 2. Benign left adrenal myelolipoma. 3. Benign cyst superior pole right kidney. 4. No acute inflammatory process within the abdomen or pelvis. 5. 3 x 3 mm nonobstructive calculus left inferior renal collecting system.
== END 2019-05-16 08:54 | disposition home or self-care (01) ==
LOC: BICCT 08:53
PROVIDERS: ATTEND Internal Medicine Medical Oncology
DX: C85.93 Non-Hodgkin lymphoma, unspecified, intra-abdominal lymph nodes (principal); D17.79 Benign lipomatous neoplasm of other sites; N28.1 Cyst of kidney, acquired; N20.0 Calculus of kidney
CPT/HCPCS: 74177

== ENCOUNTER 2019-07-11 09:11 | Outpatient (CLI) | payer OTHER ==
--- NOTE | 2019-07-11 10:15 | MMO ---
Bilateral MAMMO Bilat Screen [facility]DI. CLINICAL HISTORY: Patient is 59 years old and is seen for screening. The patient has no family history of breast cancer. The patient has a history of hodgkin's disease. VIEWS: The views performed were: bilateral craniocaudal and bilateral mediolateral oblique. FILMS COMPARED: The present examination has been compared to prior imaging studies performed at [facility] on 04/08/2016, 11/11/2016, 06/17/2017 and 06/28/2018. This study has been interpreted with the assistance of computer-aided detection. MAMMOGRAM FINDINGS: The breasts are almost entirely fat. There are stable intramammary lymph nodes seen in both breasts. There are no suspicious masses, suspicious calcifications, or new areas of architectural distortion. IMPRESSION: THERE IS NO MAMMOGRAPHIC EVIDENCE OF MALIGNANCY. A ROUTINE FOLLOW-UP MAMMOGRAM IN 1 YEAR IS RECOMMENDED. ACR BI-RADS Category 2 - Benign finding MAMMOGRAPHY NOTE: 1. A negative mammogram report should not delay a biopsy if a dominant of clinically suspicious mass is present. 2. Approximately 10% to 15% of breast cancers are not detected by mammography. 3. Adenosis and dense breasts may obscure an underlying neoplasm. Reported by: VEDA ELISE MD Electonically Signed: [id number]
== END 2019-07-11 09:12 | disposition home or self-care (01) ==
LOC: BICMAMMO 09:11
PROVIDERS: ATTEND Family Medicine
DX: Z12.31 Encounter for screening mammogram for malignant neoplasm of breast (principal)
CPT/HCPCS: 77067

== ENCOUNTER 2020-07-11 10:05 | Outpatient (CLI) | payer OTHER | END 2020-07-11 10:06 | disposition home or self-care (01) | LOC: BICMAMMO 10:05 | PROVIDERS: ATTEND Family Medicine | DX: Z12.31 Encounter for screening mammogram for malignant neoplasm of breast (principal); Z85.71 Personal history of Hodgkin lymphoma | CPT/HCPCS: 77067 ==

== ENCOUNTER 2020-07-14 21:10 | Emergency (ER) | payer OTHER | END 2020-07-14 22:57 | disposition home or self-care (01) | LOC: ERS 21:10 | DX: J44.1 Chronic obstructive pulmonary disease with (acute) exacerbation (principal); J45.901 Unspecified asthma with (acute) exacerbation; E11.9 Type 2 diabetes mellitus without complications; F17.210 Nicotine dependence, cigarettes, uncomplicated; Z79.899 Other long term (current) drug therapy; Z79.4 Long term (current) use of insulin | CPT/HCPCS: 99283 ==

== ENCOUNTER 2020-11-01 11:05 | Outpatient (CLI) | payer OTHER ==
[2020-11-01 12:28] LABS: #Basophils 0.1 10x3/uL (0.0-0.2); #Eosinphils 0.3 10x3/uL (0.0-0.5); #Monocytes 0.6 10x3/uL (0.0-1.1); #Neutrophils 4.6 10x3/uL (1.5-8.4); %Basophils 0.6 % (0.0-2.0); %Eosinophils 3.4 % (0.0-6.0); %Lymphocytes 30.5 % (18.0-47.0); %Monocytes 7.9 % (0.0-10.0); %Neutrophils 57.2 % (40.0-75.0); Hemoglobin 13.9 g/dL (12.0-15.5); Mean Corpuscular HGB CONC 31.8 g/dL (32.0-36.0); Mean Corpuscular Hemoglobin 27.3 pg (27.0-33.0); Mean Corpuscular Volume 85.7 fl (81.6-98.3); Mean Platelet Volume 10.1 fl (7.4-10.4); Platelet Count 270 10x3/uL (150-450); RBC Distribution Width 12.4 % (11.5-14.5)
[2020-11-01 13:32] LABS: ALT (SGPT) 13 U/L (8-55); AST (SGOT) 13 U/L (5-34); Alkaline Phosphatase 160 U/L (40-110); Anion Gap 13 mmol/L (10-20); BUN (Urea Nitrogen) 14 mg/dL (9.8-20.1); Bilirubin, Total 0.5 mg/dL (0.2-1.2); Calc. Creatinine Clearance 0 mL/min (70-130); Calcium 10.2 mg/dL (7.8-10.44); Carbon Dioxide 26 mmol/L (22-29); Chloride 105 mmol/L (98-107); Glucose 230 mg/dL (70-105); Potassium 4.2 mmol/L (3.5-5.1); Sodium 140 mmol/L (136-145)
[2020-11-02 10:34] LABS: SARS-CoV-2 PCR by NAA Not Detected (NotDetected)
== END 2020-11-01 11:06 | disposition home or self-care (01) ==
LOC: LABBT 11:05
PROVIDERS: ATTEND Specialist
DX: Z01.818 Encounter for other preprocedural examination (principal); K80.20 Calculus of gallbladder without cholecystitis without obstruction; Z20.822 Contact with and (suspected) exposure to COVID-19
CPT/HCPCS: 80053; 85025; 93005; 93010; U0003; U0005

== ENCOUNTER 2020-11-06 07:53 | Day surgery (SDC) | payer OTHER ==
[2020-11-05 10:29] VITALS: BMI 31.1
[2020-11-06] MEDS ORDERED: Ketorolac Tromethamine 30 MG/ML VIAL ONE (08:42)
[2020-11-06] MEDS ORDERED: Acetaminophen 500 MG TAB ONE (08:42)
[2020-11-06] MEDS ORDERED: Fentanyl 100 MCG/2 ML VIAL ONE ×3 (11:23→13:22)
[2020-11-06] MEDS ORDERED: Bupivacaine 0.25% HCL 30 ML VIAL ONE (11:24)
[2020-11-06] MEDS ORDERED: Lidocaine 1% w/Epinephrine 1:100K 20 ML VIAL ONE (11:24)
[2020-11-06] MEDS ORDERED: PROPOFOL 200 MG/20 ML VIAL ONE (11:38)
[2020-11-06] MEDS ORDERED: Ondansetron PF 4 MG/2 ML Vial ONE (11:38)
[2020-11-06] MEDS ORDERED: Lidocaine 1% PF 5 ML VIAL ONE (11:38)
[2020-11-06] MEDS ORDERED: Glycopyrrolate 0.2 MG/ML 5 ML SYRINGE ONE (11:38)
[2020-11-06] MEDS ORDERED: Rocuronium Bromide 10 MG/ML (10ML VIAL) ONE (11:38)
== END 2020-11-06 15:02 | disposition home or self-care (01) ==
LOC: SDC 07:53
PROVIDERS: ATTEND Specialist
PROC: 0FT44ZZ Resection of Gallbladder, Percutaneous Endoscopic Approach (ICD-10-PCS; principal; 2020-11-06)
DX: K80.10 Calculus of gallbladder with chronic cholecystitis without obstruction (principal); K82.1 Hydrops of gallbladder; K82.8 Other specified diseases of gallbladder; I10 Essential (primary) hypertension; E78.5 Hyperlipidemia, unspecified; E11.9 Type 2 diabetes mellitus without complications; M19.90 Unspecified osteoarthritis, unspecified site; J44.9 Chronic obstructive pulmonary disease, unspecified; F17.210 Nicotine dependence, cigarettes, uncomplicated; Z98.51 Tubal ligation status; Z98.890 Other specified postprocedural states; Z96.659 Presence of unspecified artificial knee joint; Z86.010 Personal history of colon polyps; Z79.1 Long term (current) use of non-steroidal anti-inflammatories (NSAID); Z79.4 Long term (current) use of insulin
CPT/HCPCS: 36416; 88304; J0690; J1885; J2405; J2704; J3010; S0020

== ENCOUNTER 2020-11-26 07:07 | Outpatient (CLI) | payer OTHER | END 2020-11-26 07:08 | disposition home or self-care (01) | LOC: RAD 07:07 | PROVIDERS: ATTEND Specialist | DX: K80.20 Calculus of gallbladder without cholecystitis without obstruction (principal); K56.699 Other intestinal obstruction unspecified as to partial versus complete obstruction; K57.30 Diverticulosis of large intestine without perforation or abscess without bleeding | CPT/HCPCS: 74280 ==

== ENCOUNTER 2021-08-06 10:48 | Outpatient (CLI) | payer OTHER | END 2021-08-06 10:49 | disposition home or self-care (01) | LOC: BICMAMMO 10:48 | PROVIDERS: ATTEND Family Medicine | DX: Z12.31 Encounter for screening mammogram for malignant neoplasm of breast (principal); Z85.71 Personal history of Hodgkin lymphoma | CPT/HCPCS: 77067 ==

== ENCOUNTER 2021-11-07 08:04 | Outpatient (CLI) | payer OTHER ==
[2021-11-07] MEDS ORDERED: Iopamidol 370 76% 100 ML VIAL ONE (14:34)
== END 2021-11-07 08:05 | disposition home or self-care (01) ==
LOC: CT 08:04
PROVIDERS: ATTEND Internal Medicine Medical Oncology
DX: C83.33 Diffuse large B-cell lymphoma, intra-abdominal lymph nodes (principal); R19.5 Other fecal abnormalities; N20.0 Calculus of kidney; K76.0 Fatty (change of) liver, not elsewhere classified; D17.79 Benign lipomatous neoplasm of other sites; K63.89 Other specified diseases of intestine
CPT/HCPCS: 74178; 82565

== ENCOUNTER 2022-08-19 13:43 | Outpatient (CLI) | payer OTHER | END 2022-08-19 13:44 | disposition home or self-care (01) | LOC: BICMAMMO 13:43 | PROVIDERS: ATTEND Family Medicine | DX: Z12.31 Encounter for screening mammogram for malignant neoplasm of breast (principal); Z12.2 Encounter for screening for malignant neoplasm of respiratory organs; F17.210 Nicotine dependence, cigarettes, uncomplicated; R91.8 Other nonspecific abnormal finding of lung field; Z85.71 Personal history of Hodgkin lymphoma | CPT/HCPCS: 71271; 77067 ==